=== PATIENT | male | born 1925 | race Asian ===

== ENCOUNTER → 2016-12-22 | Outpatient (CLI) | payer MEDICARE, OTHER ==
[~2016-12-22] VITALS: Ht 170.2 cm; Wt 83.5 kg
[~2016-12-22] MED LIST: ALBU17AE16 IH; BENZ200C2 PO; BUME1TAB30 PO; FLUT16H NASAL; FLUT1BLS PO; IPRA0.2S54 NEB; LORA10CA PO; LOSA50TA37 PO; MONT10TA21 PO; OMEG1CAP31 PO; OMEP40CA PO; PRED10TA3 PO; SIMV40TA5 PO; TIOT185 IH; WARF4TAB41 PO
[2016-12-22 11:45] VITALS: BP 113/50
== END | disposition home or self-care (01) ==
LOC: SRCNTR 11:37
PROVIDERS: ATTEND Internal Medicine Critical Care Medicine
DX: J18.9 Pneumonia, unspecified organism (principal); I11.0 Hypertensive heart disease with heart failure; I50.9 Heart failure, unspecified; J44.1 Chronic obstructive pulmonary disease with (acute) exacerbation; I25.10 Atherosclerotic heart disease of native coronary artery without angina pectoris; I48.91 Unspecified atrial fibrillation; Z95.5 Presence of coronary angioplasty implant and graft; Z95.810 Presence of automatic (implantable) cardiac defibrillator
CPT/HCPCS: G0463